=== PATIENT | female | born 1990 | race Caucasian/White ===

== ENCOUNTER 2018-10-28 07:12 | Outpatient (CLI) | payer OTHER ==
[2018-10-28 12:19] LABS: BASOPHILS % (AUTO) 0.4 %; EOSINOPHILS # (AUTO) 0.1 10^3/uL (0.0-0.7); EOSINOPHILS % (AUTO) 1.8 %; HGB - HEMOGLOBIN 13.4 g/dL (12.0-16.0); LYMPHOCYTES # (AUTO) 2.3 10^3/uL (1.5-3.5); MEAN CORPUSCULAR HEMOGLOBIN 29.2 pg (27.0-31.0); MEAN CORPUSCULAR HGB CONC 31.9 g/dL (32.0-36.0); MEAN CORPUSCULAR VOLUME 91.5 fL (81.0-99.0); MEAN PLATELET VOLUME 10.6 fL (7.9-10.8); MONOCYTES # (AUTO) 0.5 10^3/uL (0.0-1.0); MONOCYTES % (AUTO) 7.9 %; NEUTROPHILS # (AUTO) 3.7 10^3/uL (1.5-6.6); NEUTROPHILS % (AUTO) 55.8 %; PLT - PLATELET COUNT 231 10^3/uL (130-450); RED BLOOD COUNT 4.59 10^6/uL (4.20-5.40); RED CELL DISTRIBUTION WIDTH 12.7 % (12.0-15.0); WHITE BLOOD COUNT 6.7 x10^3/uL (4.8-10.8)
[2018-10-28 13:55] LABS: ALBUMIN 4.3 g/dL (3.2-5.5); ALBUMIN/GLOBULIN RATIO 1.5 (1.0-2.2); ALKALINE PHOSPHATASE 50 IU/L (42-121); ALT ALANINE AMINOTRANSFERASE 13 IU/L (10-60); AST ASPARTATE AMINOTRANSFERASE 15 IU/L (10-42); BILIRUBIN,TOTAL 0.8 mg/dL (0.2-1.0); BUN - BLOOD UREA NITROGEN 15 mg/dL (6-20); CARBON DIOXIDE - CO2 28 mmol/L (21-32); CHLORIDE 109 mmol/L (101-111); CHOL/HDL RATIO 4.2 (<4.4); CHOLESTEROL 229 mg/dL; CREATININE 0.7 mg/dL (0.4-1.0); GFR - MDRD 99 (>89); GLUCOSE 93 mg/dL (70-100); HDL CHOLESTEROL 55 mg/dL; LDL CHOLESTEROL,CALCULATED 159 mg/dL; LDL/HDL RATIO 2.9 (<4.4); SODIUM 139 mmol/L (135-145); TOTAL PROTEIN 7.2 g/dL (6.7-8.2); VLDL CHOLESTEROL 15 mg/dL
== END 2018-10-28 07:18 | disposition home or self-care (01) ==
LOC: LAB.N 07:12
PROVIDERS: ATTEND Nurse Practitioner Gerontology
DX: Z13.9 Encounter for screening, unspecified (principal)
CPT/HCPCS: 36415; 80053; 80061; 83721; 85025

== ENCOUNTER 2019-11-04 07:00 | Outpatient (CLI) | payer OTHER ==
[2019-11-04 17:09] LABS: MUDS CUTOFF CONCENTRATIONS CUTOFF CONC BELOW:
[2019-11-04 18:27] LABS: BILIRUBIN,URINE NEGATIVE (NEGATIVE); GLUCOSE, URINE (UA) NEGATIVE (NEGATIVE); KETONES,URINE (UA) NEGATIVE (NEGATIVE); LEUKOCYTE ESTERASE, URINE MODERATE (NEGATIVE); NITRITE,URINE NEGATIVE (NEGATIVE); OCCULT BLOOD,URINE NEGATIVE (NEGATIVE); PROTEIN,URINE NEGATIVE (NEGATIVE); UROBILINOGEN,URINE 0.2 (NORMAL) E.U./dL (NORMAL)
[2019-11-04 18:29] LABS: CLARITY,URINE CLEAR (CLEAR)
[2019-11-04 18:42] LABS: AMPHETAMINE SCREEN,URINE NEGATIVE (NEGATIVE); BENZODIAZEPINES SCREEN, URINE NEGATIVE (NEGATIVE); COCAINE SCREEN URINE NEGATIVE (NEGATIVE); METHADONE SCREEN, URINE NEGATIVE (NEGATIVE); METHAMPHETAMINES SCREEN, URINE NEGATIVE (NEGATIVE); OPIATE SCREEN, URINE NEGATIVE (NEGATIVE); OXYCODONE SCREEN, URINE NEGATIVE (NEGATIVE); PROPOXYPHENE SCREEN, URINE NEGATIVE (NEGATIVE); TRICYCLIC ANTIDEPRESSANT,URINE NEGATIVE (NEGATIVE)
[2019-11-04 18:43] LABS: BACTERIA,URINE Many /HPF (None Seen); RBC,URINE 0-5 /HPF (0-5); SQUAMOUS EPITHELIAL CELL,UR FEW Squamous (<= Few)
== END 2019-11-04 07:01 | disposition home or self-care (01) ==
LOC: LAB.R 07:00
PROVIDERS: ATTEND Obstetrics & Gynecology
DX: Z32.01 Encounter for pregnancy test, result positive (principal)
CPT/HCPCS: 80306; 81001; 87086

== ENCOUNTER 2019-11-16 15:27 | Outpatient (CLI) | payer OTHER ==
--- NOTE | 2019-11-17 10:04 | Ultrasound Report ---
PROCEDURE: OB First Trimester INDICATIONS: TEST POSITIVE OUTSIDE/PRIOR DATING DATA: Last menstrual period (LMP): 09/26/2019. LMP-based estimated date of delivery (RICH): 07/02/2020. First dating scan (date and location): This study, 11/16/2019. Estimated date of delivery (RICH) from first dating scan: 07/05/2020. TECHNIQUE: Real-time scanning was performed of the fetus and maternal pelvic organs, with image documentation. COMPARISON: None FINDINGS: Single living intrauterine gestation. Embryo: [place]-rump length is 8 mm which correlates with a gestational age of 6 weeks 6 days, +/- 5 d ays. Mean sac diameter is 2.2 cm, maternal cervical appearance is normal for early gestation. h eart rate is measured at 1 25 bpm. Incidental note is made of a subchorionic hemorrhage at the gestat ional sac margin measuring only 4 x 4 x 13 mm. Measurement variability in dating: +/- 4 weeks by LMP, +/- 7 days by mean sac diameter (use before 6 weeks gestation if crown-rump length not able to be measured), +/- 5 days by crown-rump length (6-12 weeks gestation). Maternal organs: Ovaries right-sided corpus luteum cyst.. Limited images through the kidneys demons trate no hydronephrosis. IMPRESSION: Single living intrauterine first trimester gestation with estimated current gestational age of only 6 weeks 6 days, and the delivery date is projected to be centered on 07/05/2020, +/- 5 days. Note is ma de of a small perigestational subchorionic hemorrhage measuring only 0.4 x 1.3 x 0.4 cm. Follow-up fe sony anatomic survey at 20 weeks gestation is recommended. Reviewed by: Weston Avilez MD on 11/17/2019 10:03 AM PDT Approved by: Weston Avilez MD on 11/17/2019 10:03 AM PDT Station ID: [id number]
--- NOTE | 2019-11-17 10:06 | Ultrasound Report ---
PROCEDURE: OB Transvaginal INDICATIONS: TEST POSITIVE IMPRESSION: Please refer to the dedicated OB ultrasound first trimester report which combines the transabdominal and transvaginal scanning performed today. Reviewed by: Weston Avilez MD on 11/17/2019 10:05 AM PDT Approved by: Weston Avilez MD on 11/17/2019 10:05 AM PDT Station ID: [id number]
== END 2019-11-16 15:28 | disposition home or self-care (01) ==
LOC: DI 15:27
PROVIDERS: ATTEND Obstetrics & Gynecology
DX: Z32.01 Encounter for pregnancy test, result positive (principal)
CPT/HCPCS: 76801; 76817

== ENCOUNTER 2019-11-24 08:30 | Outpatient (CLI) | payer OTHER ==
[2019-11-24 21:06] LABS: TRICHOMONAS VAGINALIS DNA NEGATIVE (NEGATIVE)
== END 2019-11-24 23:59 | disposition home or self-care (01) ==
LOC: LAB.R 08:30
PROVIDERS: ATTEND Advanced Practice Midwife
DX: Z34.90 Encounter for supervision of normal pregnancy, unspecified, unspecified trimester (principal); Z11.3 Encounter for screening for infections with a predominantly sexual mode of transmission
CPT/HCPCS: 87491; 87591; 87661

== ENCOUNTER 2019-11-24 08:50 | Outpatient (CLI) | payer OTHER ==
[2019-11-24 09:07] LABS: MUDS CUTOFF CONCENTRATIONS CUTOFF CONC BELOW:
[2019-11-24 09:23] LABS: BASOPHILS % (AUTO) 0.3 %; EOSINOPHILS # (AUTO) 0.1 10^3/uL (0.0-0.7); EOSINOPHILS % (AUTO) 0.7 %; HGB - HEMOGLOBIN 13.6 g/dL (12.0-16.0); LYMPHOCYTES # (AUTO) 1.6 10^3/uL (1.5-3.5); LYMPHOCYTES % (AUTO) 22.2 %; MEAN CORPUSCULAR HEMOGLOBIN 30.4 pg (27.0-31.0); MEAN CORPUSCULAR HGB CONC 34.5 g/dL (32.0-36.0); MEAN CORPUSCULAR VOLUME 87.9 fL (81.0-99.0); MEAN PLATELET VOLUME 9.8 fL (7.9-10.8); MONOCYTES # (AUTO) 0.5 10^3/uL (0.0-1.0); MONOCYTES % (AUTO) 6.6 %; NEUTROPHILS % (AUTO) 69.8 %; PLT - PLATELET COUNT 225 10^3/uL (130-450); RED BLOOD COUNT 4.48 10^6/uL (4.20-5.40); RED CELL DISTRIBUTION WIDTH 11.8 % (12.0-15.0); WHITE BLOOD COUNT 7.1 x10^3/uL (4.8-10.8)
[2019-11-24 09:47] LABS: AMPHETAMINE SCREEN,URINE NEGATIVE (NEGATIVE); BENZODIAZEPINES SCREEN, URINE NEGATIVE (NEGATIVE); COCAINE SCREEN URINE NEGATIVE (NEGATIVE); METHADONE SCREEN, URINE NEGATIVE (NEGATIVE); METHAMPHETAMINES SCREEN, URINE NEGATIVE (NEGATIVE); OPIATE SCREEN, URINE NEGATIVE (NEGATIVE); OXYCODONE SCREEN, URINE NEGATIVE (NEGATIVE); PROPOXYPHENE SCREEN, URINE NEGATIVE (NEGATIVE); TRICYCLIC ANTIDEPRESSANT,URINE NEGATIVE (NEGATIVE)
[2019-11-25 12:14] LABS: HEPATITIS B SURFACE ANTIGEN NON-REACTIVE (NON-REACTIVE)
[2019-11-25 12:42] LABS: HEPATITIS C ANTIBODY NON-REACTIVE (NON-REACTIVE)
[2019-11-25 13:25] LABS: HIV AG/AB 4TH GEN NON-REACTIVE (NON-REACTIVE)
== END 2019-11-24 08:51 | disposition home or self-care (01) ==
LOC: LAB 08:50
PROVIDERS: ATTEND Advanced Practice Midwife
DX: Z34.90 Encounter for supervision of normal pregnancy, unspecified, unspecified trimester (principal); Z36.89 Encounter for other specified antenatal screening
CPT/HCPCS: 36415; 80306; 81599; 85025; 86592; 86762; 86787; 86803; 86850; 86900; 86901; 87340; 87389; 87491; 87591; 87661

== ENCOUNTER 2019-12-21 08:00 | Outpatient (CLI) | payer OTHER ==
[2019-12-21 22:39] LABS: CANDIDA GROUP DNA NEGATIVE (NEGATIVE); CANDIDA KRUSEI DNA NEGATIVE (NEGATIVE); TRICHOMONAS VAGINALIS DNA NEGATIVE (NEGATIVE)
== END 2019-12-21 23:59 | disposition home or self-care (01) ==
LOC: LAB.R 08:00
PROVIDERS: ATTEND Nurse Practitioner Obstetrics & Gynecology
DX: N89.8 Other specified noninflammatory disorders of vagina (principal)
CPT/HCPCS: 87661; 87801

== ENCOUNTER 2020-02-14 09:47 | Outpatient (CLI) | payer OTHER ==
--- NOTE | 2020-02-14 13:31 | Ultrasound Report ---
PROCEDURE: OB Detailed Eval INDICATIONS: SCREENING OUTSIDE/PRIOR DATING DATA: Last menstrual period (LMP): 09/26/2019. LMP-based estimated date of delivery (RICH): 07/02/2020. First dating scan (date and location): 11/16/2019. Estimated date of delivery (RICH) from first dating scan: 07/05/2020. TECHNIQUE: Real-time scanning was performed of the fetus, with image documentation and biometric measurements. Endovaginal scanning: Not needed COMPARISON: 11/16/2019 FINDINGS: General: A single living intrauterine gestation is present. Presentation: Breech Placenta: Placental position is anterior, without previa. Amniotic fluid index: 14.5 cm, 53.4 percentile for gestational age. heart rate: 158 beats per minute. Maternal cervical canal: 4.4 cm long; normal length is 2.5 cm or more. biometrics: Biparietal diameter: 4.5 cm, 19 weeks 4 days Head circumference: 16.7 cm, 19 weeks 3 days Abdominal circumference: 14.1 cm, 19 weeks 3 days Femur length: 3.0 cm, 19 weeks 1 day Estimated gestational age from initial scan: 20 weeks 1 day. Composite gestational age from present scan: 19 weeks 3 days Estimated weight and percentile: 286 g, 24.3 percentile Measurement variability in biometric dating: +/- 10 days from 12-20 weeks gestation, +/- 2 weeks from 20-30 weeks gestation, +/- 3 weeks at 30 weeks gestation or later. Anatomic survey: Neuro: Ventricles are normal at less than 10 mm. Cisterna magna is normal at 3-11 mm. Cerebellum i s normal in size and morphology. Nuchal skin fold: Normal at less than 6 mm between 14 and 20 weeks gestational age. Face: Nose and lips, facial profile are normal. Spine: No evidence for spina bifida. Heart: 4-chambered heart is present, with normal ventricular outflow tracts. Diaphragm: Diaphragm is intact. Stomach: Left-sided stomach is present. Kidneys: No hydronephrosis. Normal is less than 5 mm in 2nd trimester, less than 7 mm in 3rd trimester. Cord: 3 vessel cord has orthotopic insertion. Bladder: Normal in size. Extremities: All 4 extremities are visualized. IMPRESSION: Appropriate interval growth, no anomaly seen. The delivery date is projected to be centered on 07/05/2020 +/- 5 days from first available OB ultrasound dated 11/16/2019. No anomaly is seen. Reviewed by: Weston Avilez MD on 02/14/2020 1:29 PM PST Approved by: Weston Avilez MD on 02/14/2020 1:29 PM PST Station ID: [id number]
== END 2020-02-14 09:48 | disposition home or self-care (01) ==
LOC: DI 09:47
PROVIDERS: ATTEND Nurse Practitioner Obstetrics & Gynecology
DX: Z36.89 Encounter for other specified antenatal screening (principal)

== ENCOUNTER 2020-03-30 08:00 | Outpatient (CLI) | payer OTHER ==
[2020-03-30 09:38] LABS: HGB - HEMOGLOBIN 12.1 g/dL (12.0-16.0); MEAN CORPUSCULAR HEMOGLOBIN 31.7 pg (27.0-31.0); MEAN CORPUSCULAR HGB CONC 34.6 g/dL (32.0-36.0); MEAN CORPUSCULAR VOLUME 91.6 fL (81.0-99.0); MEAN PLATELET VOLUME 9.7 fL (7.9-10.8); RED BLOOD COUNT 3.82 10^6/uL (4.20-5.40); RED CELL DISTRIBUTION WIDTH 12.3 % (12.0-15.0); WHITE BLOOD COUNT 7.9 x10^3/uL (4.8-10.8)
== END 2020-03-30 23:59 | disposition home or self-care (01) ==
LOC: LAB 08:00
PROVIDERS: ATTEND Nurse Practitioner Obstetrics & Gynecology
DX: Z36.89 Encounter for other specified antenatal screening (principal)
CPT/HCPCS: 36415; 82950; 85027

== ENCOUNTER 2020-05-11 08:00 | Outpatient (CLI) | payer OTHER ==
[2020-05-11 10:57] LABS: BASOPHILS % (AUTO) 0.3 %; EOSINOPHILS # (AUTO) 0.1 10^3/uL (0.0-0.7); EOSINOPHILS % (AUTO) 0.5 %; HCT - HEMATOCRIT 34.7 % (37.0-47.0); HGB - HEMOGLOBIN 11.9 g/dL (12.0-16.0); LYMPHOCYTES # (AUTO) 1.4 10^3/uL (1.5-3.5); LYMPHOCYTES % (AUTO) 15.2 %; MEAN CORPUSCULAR HGB CONC 34.3 g/dL (32.0-36.0); MEAN CORPUSCULAR VOLUME 90.4 fL (81.0-99.0); MEAN PLATELET VOLUME 9.6 fL (7.9-10.8); MONOCYTES # (AUTO) 0.7 10^3/uL (0.0-1.0); MONOCYTES % (AUTO) 7.2 %; NEUTROPHILS # (AUTO) 7.2 10^3/uL (1.5-6.6); PLT - PLATELET COUNT 197 10^3/uL (130-450); RED BLOOD COUNT 3.84 10^6/uL (4.20-5.40); RED CELL DISTRIBUTION WIDTH 12.4 % (12.0-15.0); WHITE BLOOD COUNT 9.5 x10^3/uL (4.8-10.8)
[2020-05-11 11:11] LABS: ALBUMIN 3.1 g/dL (3.2-5.5); ALBUMIN/GLOBULIN RATIO 0.9 (1.0-2.2); BILIRUBIN,TOTAL 0.4 mg/dL (0.2-1.0); CALCIUM 9.4 mg/dL (8.5-10.3); CREATININE 0.6 mg/dL (0.4-1.0); POTASSIUM 3.7 mmol/L (3.5-5.0); TOTAL PROTEIN 6.5 g/dL (6.7-8.2)
[2020-05-11 11:53] LABS: CREATININE,URINE 96.7 mg/dL; PROTEIN/CREATININE RATIO,URINE 0.1 (<=0.2)
== END 2020-05-11 23:59 | disposition home or self-care (01) ==
LOC: LAB 08:00
PROVIDERS: ATTEND Nurse Practitioner Obstetrics & Gynecology
DX: O13.3 Gestational [pregnancy-induced] hypertension without significant proteinuria, third trimester (principal)
CPT/HCPCS: 36415; 80053; 82570; 84156; 85025

== ENCOUNTER 2020-06-08 08:00 | Outpatient (CLI) | payer OTHER | END 2020-06-08 23:59 | disposition home or self-care (01) | LOC: LAB.WC 08:00 | PROVIDERS: ATTEND Nurse Practitioner Obstetrics & Gynecology | DX: Z36.85 Encounter for antenatal screening for Streptococcus B (principal) | CPT/HCPCS: 87797 ==

== ENCOUNTER 2020-06-08 09:39 | Outpatient (CLI) | payer OTHER ==
[2020-06-08 09:53] LABS: HCT - HEMATOCRIT 34.5 % (37.0-47.0); HGB - HEMOGLOBIN 11.8 g/dL (12.0-16.0); MEAN CORPUSCULAR HEMOGLOBIN 31.2 pg (27.0-31.0); MEAN CORPUSCULAR HGB CONC 34.2 g/dL (32.0-36.0); MEAN CORPUSCULAR VOLUME 91.3 fL (81.0-99.0); RED BLOOD COUNT 3.78 10^6/uL (4.20-5.40); RED CELL DISTRIBUTION WIDTH 12.3 % (12.0-15.0); WHITE BLOOD COUNT 9.4 x10^3/uL (4.8-10.8)
[2020-06-08 10:07] LABS: ALBUMIN/GLOBULIN RATIO 0.9 (1.0-2.2); BILIRUBIN,TOTAL 0.6 mg/dL (0.2-1.0); CALCIUM 9.2 mg/dL (8.5-10.3); CREATININE 0.6 mg/dL (0.4-1.0); POTASSIUM 3.4 mmol/L (3.5-5.0); TOTAL PROTEIN 6.2 g/dL (6.7-8.2)
[2020-06-08 10:08] LABS: CREATININE,URINE 28.6 mg/dL
[2020-06-08 10:09] LABS: TOTAL PROTEIN,URINE TIMED < 6 mg/dL
== END 2020-06-08 09:40 | disposition home or self-care (01) ==
LOC: LAB 09:39
PROVIDERS: ATTEND Nurse Practitioner Obstetrics & Gynecology
DX: O99.891 Other specified diseases and conditions complicating pregnancy (principal); R03.0 Elevated blood-pressure reading, without diagnosis of hypertension
CPT/HCPCS: 36415; 80053; 82570; 84156; 85027

== ENCOUNTER 2020-07-04 20:02 | Inpatient (IN) | payer OTHER ==
[2020-07-04] MEDS ORDERED: OXYTOCIN 10 UNIT/ML VIAL IM PRN (20:28)
[2020-07-04] MEDS ORDERED: LIDOCAINE-MPF 1% 30 ML VIAL ID PRN (20:28)
[2020-07-04] MEDS ORDERED: SODIUM CHLORIDE FLUSH 0.9% 10 ML SYRINGE IVP PRN (20:28)
[2020-07-04] MEDS ORDERED: ONDANSETRON 4 MG/2 ML VIAL IVP PRN (20:28)
[2020-07-04] MEDS ORDERED: CARBOPROST TROMETHAMINE 250 MCG/ML AMP IM PRN (20:28)
[2020-07-04] MEDS ORDERED: TRANEXAMIC ACID IN NACL 1,000 MG/100 ML BAG IV PRN (20:28)
[2020-07-04] MEDS ORDERED: METHYLERGONOVINE 0.2 MG/ML VIAL IM PRN (20:28)
[2020-07-04] MEDS ORDERED: OXYTOCIN/SODIUM CHLORIDE 500 ML IV PRN (20:28)
[2020-07-04] MEDS ORDERED: miSOPROStoL 200 MCG TABLET BC PRN (20:28)
--- NOTE | 2020-07-04 20:38 | HISTORY & PHYSICAL EXAMINATION ---
Admit History - Visit Reason Visit Reason: Contractions - : 4 Parity: 2 Premature: 0 Ectopic: 0 : 1 Care: positive: [facility] Risk/History: positive: None Complications This : positive: None - Mother's Labs Mother's Blood Type: positive: O Mother's RH: positive: Positive GBS: positive: Group B Step Negative Rubella Status: positive: Immune Review of Systems - Constitutional Constitutional: denies: Fatigue, Fever, Chills, Malaise - Eyes Eyes: denies: Blurred vision, Spots in vision, Dipolpia - Cardiovascular Cariovascular: denies: Irregular heart rate, Chest pain, Edema - Respiratory Respiratory: denies: Cough, SOB at rest - Gastrointestinal Gastrointestinal: denies: Constipation, Diarrhea, Change in bowel habits - Integumentary Integumentary: denies: Rash, Pruritis - Neurological Neurological: denies: Headache Physical - Abdominal Exam Contraction Frequency (min/apart): 2-3 Contraction Intensity: positive: Moderate Uterine Resting Tone: positive: Soft - Monitoring Heart Rate Baseline: 145 Strip Review: positive: Category I - Presentation Presentation: positive: Vertex - Vaginal Exam Membranes: positive: Membranes intact Dilation (in cm): 3 Effacement (%): 75 Station: positive: -2 Cervical Position: positive: Posterior - Speculum Exam Speculum Exam Performed: positive: No Plan for Labor - Plan For Labor I expect patient to be DC'd or transferred within 96 hours.: Yes Plan for Labor: HPI: This 30yo @ 40.2wks gestation by LMP c/w 7.2wk U/S presents to [facility] with c/o contractions that are 2-3 minutes apart. She denies vaginal bleeding or leakage of fluid. She reports +FM. Upon arrival she is noted to contract every 2-3 minutes and her cervix is noted to be 3/75/-3 and vertex. She is breathing through contractions and is supported by her Anders. She intends an unmedicated delivery. She has been a patient of [facility] through the duration of her which has remained uncomplicated. She has a hx of gestational hypertension with her previous pregnancies however she was started on 81mg ASA daily at 12 weeks gestation and her blood pressure has remained within normal limits through the duration of her . She will be admitted to [facility] for expectant management. Dating criteria: LMP Initial U/S @ 7.2wks c/w LMP dating Serial exams - agree OB Hx: G1: 05/10/2014 SAB @ 6wks G2: 02/27/2015 @ 38wks; female; 6lb6oz; complications: gestational HTN, IOL G3: 11/27/2016 @ 39wks; male; 7lb2oz; gestational HTN, IOL G4: Current Medications: PNV, 81mg ASA daily; sertraline 50mg Allergies: NKDA PMHx: Anxiety/depression; seasonal allergies Surgical Hx: none Social Hx: Never smoker. No ETOH or IVDA. Anders Family Hx: Heart disease - mother, MGF; HTN - mother; High cholesterol - father PROBLEMS: Hx gestational HTN x2- 81mg ASA daily Initial U/S: at 7.2wks c/w LMP for RICH of 07/02/2020 O pos/Rubella immune VZV immune Gentic testing: declines FAS: FAS WNL. Anterior placenta, no previa. 3VC. Size c/w dating efw 24.3% Glucola 91 Flu: 11/04/2019 TDAP 04/13/2020 GBS at 36.4 wks - Negative HSV: denies self and partner Breast pump Rx provided MOD: . : Anders, daughter-5, son Reed-3; It's a GIRL!; Moving to [place] 1 week after RICH (07/14/2020) plan - does NOT want pitocin for IOL and states membrane sweep and misoprostol as worked fine for her to initiate labor. She is okay with IV access. Wants to avoid PP pitocin if possible. Reviewed recommendations for active management of the third stage. Accepting with increased rate of bleeding. Okay with gentle cord traction and fundal massage. pp contraception: NO iud or devices. Low dose OCPs. PAP: 10/24/2019-wnl Physical Exam: Normocephalic, atraumatic Heart RRR w/o M/G/R Lungs CTAB Abdomen gravid, soft, nontender EFW 3800g FHR baseline 145, moderate variability, + accels, no decels Contractions palpate moderate every 2-3 minutes with soft resting tone SVE 3/75/-3. Vertex. Membranes intact. Bilateral LE's trace edema Assessment: 30yo @ 40.2wks gestation by LMP c/w 7.2wk U/S Early labor GBS neg FHR Category I Plan: Admit to [facility] for expectant management. Intermittent heart rate auscultation. Encouraged ambulation and position changes. Jacuzzi PRN. Nitrous oxide PRN. Anticipate . Pt verbalized understanding and agrees to above plan. She denies further questions or concerns at this time.
[2020-07-04] MEDS ORDERED: LACTATED RINGERS 1,000 ML IV SCH (21:00)
[2020-07-04 21:21] LABS: BASOPHILS % (AUTO) 0.3 %; EOSINOPHILS # (AUTO) 0.1 10^3/uL (0.0-0.7); EOSINOPHILS % (AUTO) 0.9 %; HCT - HEMATOCRIT 35.1 % (37.0-47.0); HGB - HEMOGLOBIN 12.3 g/dL (12.0-16.0); LYMPHOCYTES % (AUTO) 19.1 %; MEAN CORPUSCULAR HEMOGLOBIN 31.3 pg (27.0-31.0); MEAN CORPUSCULAR VOLUME 89.3 fL (81.0-99.0); MEAN PLATELET VOLUME 10.2 fL (7.9-10.8); NEUTROPHILS # (AUTO) 7.4 10^3/uL (1.5-6.6); NEUTROPHILS % (AUTO) 70.1 %; PLT - PLATELET COUNT 212 10^3/uL (130-450); RED BLOOD COUNT 3.93 10^6/uL (4.20-5.40); WHITE BLOOD COUNT 10.6 x10^3/uL (4.8-10.8)
[2020-07-05] MEDS ORDERED: SODIUM CHLORIDE FLUSH 0.9% 10 ML SYRINGE IVP SCH (01:00)
[2020-07-05] MEDS ORDERED: HYDROCORTISONE 1% CREAM 28 GM TUBE PR PRN (01:21)
[2020-07-05] MEDS ORDERED: WITCH HAZEL/GLYCERIN 1 PAD TOP PRN (01:21)
--- NOTE | 2020-07-05 01:26 | DELIVERY NOTE ---
Delivery Note - Labor Labor: positive: Spontaneous - Delivery Method Delivery Method: positive: Spontaneous vaginal delivery - Presentation Presentation: positive: Vertex, OA - occiput anterior - Nuchal Cord Nuchal Cord: positive: None - Amniotic Fluid Description Amniotic Fluid Description: positive: Clear - Episiotomy Type Episiotomy Type: positive: None - Laceration Laceration: positive: 1st degree, Vaginal - Suture Suture Type: positive: Vicryl Suture Size: positive: 2-0 - Delivery Outcome Delivery Outcome: positive: Livebirth - [place]: positive: Placed in direct skin contact with mother, Stimulated, Warmed, [place] used [place] sex: positive: Female - Cord Cord: positive: 3 vessels - Placenta Placenta: positive: Intact, Spontaneous - Estimated Blood Loss Estimated Blood Loss (in cc): 200 - Post Delivery Events Post Delivery Events: positive: No post delivery events - Delivery Comments (Free Text/Narrative) Delivery Comments (Free Text/Narrative): Labor: This 30yo @ 40.3wks gestation who presented in early labor. Cervix was 3/75/-3, midposition and vertex. FHR Category I pattern. Intermitent monitoring reviewed reassuring heart tones throughout labor. Normal labor course. SROM occurred when patient reached complete dilation with onset of pushing at 0027. : Normal of viable female infant on 07/05/2020 @ 0037. No nuchal cord. The was placed on maternal abdomen, stimulated, dried, and placed skin to skin. 's were 8/9 at 1 and 5 min respectively. The umbilical cord was allowed to stop pulsating at which time it was doubly clamped by CNM and cut by FOB> 3VC. Cord blood was obtained. Fundal massage and gentle cord traction applied for modified active management of the third stage as pt declined use of pitocin if bleeding was well controlled which it was. Placenta delivered spontaneously and intact at 0045. EBL 200mL. Fourth stage: Uterine fundus firm and there is no excessive bleeding. The perineum, vagina, and cervix were inspected and noted to have 1st degree vaginal laceration which was repaired using a 2-[address]-1 needle in standard fashion and under sterile conditions. Vaginal examination following repair was completed. Tissues well approximated. initiated. Family bonding well. Both mother and baby were left in stable condition.
[2020-07-05] MEDS: ACETAMINOPHEN 500 MG TABLET PO SCH ×3 (01:49→17:32)
[2020-07-05] MEDS: IBUPROFEN 800 MG TABLET PO SCH ×4 (01:49→20:11)
[2020-07-05] MEDS: DOCUSATE SODIUM 100 MG CAPSULE PO SCH ×2 (08:11→20:11)
--- NOTE | 2020-07-05 09:24 | PROVIDER PROGRESS NOTE ---
Subjective - Subjective Subjective: S: Bonding well with baby. without difficulty. Pain well controlled with oral medications. Bleeding decreased and is light. She is ambulating and tolerating a regular diet. Her mood is good. Her is supportive at the bedside. O: BP 127/85, T 36.9, RR 16, HR 94 Heart RRR w/o M/G/R, lungs CTAB, abdomen soft and nontender, perineum intact, light lochia rubra, bilateral LE's trace edema A: 30yo -->P3 day of delivery s/p TSVD viable male 1st degree perineal laceration - intact P: Continue routine pp care and medications. Evaluate for discharge home tomorrow. Pt verbalized understanding and agrees to above plan. She denies further questions or concerns at this time. Objective - Vital Signs/Intake & Output Vital Signs: Vital Signs x48h Temp Pulse Resp BP Pulse Ox 07/05/20 08:00 36.9 C 94 16 127/85 H 96 07/05/20 06:12 98 07/05/20 06:00 16 121/76 07/05/20 03:30 36.9 C 109 H 16 07/05/20 03:00 100 114/72 - Lab Results Fish Bones: 07/04/20 21:00 Other Labs: Lab Results x24hrs 07/04/20 Range/Units 21:00 WBC 10.6 (4.8-10.8) x10^3/uL RBC 3.93 L (4.20-5.40) 10^6/uL Hgb 12.3 (12.0-16.0) g/dL Hct 35.1 L (37.0-47.0) % MCV 89.3 (81.0-99.0) fL MCH 31.3 H (27.0-31.0) pg MCHC 35.0 (32.0-36.0) g/dL RDW 12.0 (12.0-15.0) % Plt Count 212 (130-450) 10^3/uL MPV 10.2 (7.9-10.8) fL Neut # (Auto) 7.4 H (1.5-6.6) 10^3/uL Lymph # (Auto) 2.0 (1.5-3.5) 10^3/uL [place] # (Auto) 1.0 (0.0-1.0) 10^3/uL Eos # (Auto) 0.1 (0.0-0.7) 10^3/uL Baso # (Auto) 0.0 (0.0-0.1) 10^3/uL Absolute Nucleated RBC 0.00 x10^3/uL Nucleated RBC % 0.0 /100WBC
[2020-07-06] MEDS: ACETAMINOPHEN 500 MG TABLET PO SCH (01:37)
[2020-07-06] MEDS: IBUPROFEN 800 MG TABLET PO SCH ×2 (02:15→08:47)
[2020-07-06] MEDS: DOCUSATE SODIUM 100 MG CAPSULE PO SCH (08:47)
[2020-07-06 09:30] VITALS: BP 134/89
--- NOTE | 2020-07-06 09:49 | PROVIDER PROGRESS NOTE ---
Subjective - Subjective Subjective: S: Bonding well with baby. without difficulty. Bleeding decreased and is light. Pain well controlled with oral medications. She reports increased swelling to LE's bilaterally. Concerned with her slightly elevated BP and her hx of gestational HTN. She denies headache and reports once yesterday she experienced spots in her visual field. She is unable to remember what she was doing at that time and states it may have been associated with going from sitting to standing position. She desires to be discharged home today. Her is supportive at the bedside. O: BP 134/89, T 36.9, RR 16, HR 69 CBC and CMP pending Heart RRR w/o M/G/R, lungs CTAB, abdomen soft and nontender with fundus firm at U-2, perineum intact, repair without edema, light lochia rubra, bilateral LE's mild edema. A: 30yo -->P3 PPD#1 s/p TSVD viable female infant Normal recovery P: Reviewed pp self care and warning s/sx and when to present. Pt has emergency contact information. Encouraged continuation of ibuprofen and tylenol OTC as needed for pain management. Encouraged continuation of PNV while breastfeeeding. Has struggled with pp depression and anxiety in the past and suffers from baseline anxiety for which she was prescribed medication but has not taken. Discussed initiating sertraline 50mg PO daily if needed. F/u in 1 week with myself at [facility] or sooner PRN. Pt verbalized understanding and agrees to above plan. She denies further que stions or concerns at this time. Objective - Vital Signs/Intake & Output Vital Signs: Vital Signs x48h Temp Pulse Resp BP Pulse Ox 07/06/20 08:13 36.9 C 69 16 134/89 H 100 07/06/20 02:00 36.6 C 71 14 135/91 H 98 - Lab Results Fish Bones: 07/04/20 21:00
--- NOTE | 2020-07-06 09:57 | Discharge Plan ---
Discharge Plan Problem Reviewed?: Yes Disposition: Home, Self Care Condition: Good Diet: Regular Activity Restrictions: No Restrictions Shower Restrictions: No Driving Restrictions: No Weight Bearing: Full Weight No Smoking: If you smoke, Please STOP! Call for help. Follow-up with: Paula Reyes CNM, ARNP [Provider Admit Priv/Credential] -
--- NOTE | 2020-07-06 10:03 | DISCHARGE SUMMARY ---
Discharge Summary Condition at Discharge: Good Discharge Disposition: 01 Home, Self Care - HOSPITAL COURSE Hospital Course: Date of Admission: 07/04/2020 Date of Discharge: 07/06/2020 Diagnosis on Admission: 1. 30yo @ 40.2wks gestation 2. Early labor 3. GBS negative Diagnosis on Discharge: 1. 30yo PPD#1 s/p TSVD viable female infant 2. 3. Normal recovery Brief History: She is a patient of [facility] who presented on 07/04/2020 with complaints of contractions. Upon arrival she was noted to contract every 2-3 minutes and her cervix was 3/75/-3 and vertex. She spontaneously progressed to deliver a viable female on 07/05/2020 @ 0037. Apgars were 8/9 at 1 and 5 minutes respectively. She was noted to have a 1st degree perineal laceration which was repaired in standard fashion and under sterile conditions. EBL 200mL. She has been doing well in her course. She is ambulating and tolerating a regular diet. She is urinating without difficulty and her lochia is normal. Her pain is well controlled with oral medications. She will be discharged home today on day #1 with instructions to continue taking her vitamin while , and to continue taking ibuprofen and tylenol over the counter as needed for pain management. In addition, we reviewed parameter for beginning her 50mg sertraline daily which she may decide to do and we will review again at her visit. She intends to follow up with myself at [facility] in 1 week for routine visit or s ooner if needed. She has been given precautions to call if she has any worsening fevers, chills, abdominal pain, increased bleeding, or foul smelling vaginal lochia. - ALLERGIES Allergies/Adverse Reactions: Allergies Allergy/AdvReac Type Severity Reaction Status Date / Time No Known Drug Allergies Allergy Verified 07/05/20 01:41 - LABS Result Diagrams: 07/04/20 21:00
[2020-07-06 10:12] LABS: HCT - HEMATOCRIT 34.5 % (37.0-47.0); HGB - HEMOGLOBIN 11.6 g/dL (12.0-16.0); MEAN CORPUSCULAR HEMOGLOBIN 31.1 pg (27.0-31.0); MEAN CORPUSCULAR HGB CONC 33.6 g/dL (32.0-36.0); MEAN CORPUSCULAR VOLUME 92.5 fL (81.0-99.0); MEAN PLATELET VOLUME 10.2 fL (7.9-10.8); RED BLOOD COUNT 3.73 10^6/uL (4.20-5.40); RED CELL DISTRIBUTION WIDTH 12.5 % (12.0-15.0); WHITE BLOOD COUNT 11.3 x10^3/uL (4.8-10.8)
[2020-07-06 10:22] LABS: ALBUMIN 2.8 g/dL (3.2-5.5); ALBUMIN/GLOBULIN RATIO 0.8 (1.0-2.2); BILIRUBIN,TOTAL 0.4 mg/dL (0.2-1.0); CALCIUM 8.5 mg/dL (8.5-10.3); CREATININE 0.7 mg/dL (0.4-1.0); POTASSIUM 4.1 mmol/L (3.5-5.0); TOTAL PROTEIN 6.1 g/dL (6.7-8.2)
--- NOTE | 2020-07-06 13:15 | Labor Flowsheet ---
Labor Flowsheet Datetime Report Generated by CPN: 07/06/2020 13:14 Datetime: 07/05/2020 01:45 VITAL SIGNS NBP Sys/Marivel/Mean (mmHg): 102 : 76 : 83 Pulse: 98 Datetime: 07/05/2020 00:45 Patient Care Comments: spontaneous delivery of placenta Datetime: 07/05/2020 00:39 Stage of : Datetime: 07/05/2020 00:35 Pain Assessment Comments: unable to get FHT due to mother extreme positioning and inability to move . COMMUNICATION LaborFlag: Labor Datetime: 07/05/2020 00:27 VAGINAL EXAM Dilatation (cm): 10.0 Membrane Status: Ruptured Membranes Ruptured Date/Time: 07/05/2020 00:27 Membranes Rupture Method: Spontaneous Amniotic Fluid Color: Clear Amniotic Fluid Amount: Scant Amniotic Fluid Odor: None Vaginal Bleeding: Normal Show Datetime: 07/05/2020 00:12 Effacement (%): 80 Station: -2 Exam by: Yimi, RNC Datetime: 07/05/2020 00:10 UTERINE ACTIVITY Monitor Mode: External Frequency (min): 2-3 Quality: Strong Duration (sec): poor trace. Estimated duration 69-90 Pattern: Normal: <= 5 Contractions in 10 Minutes Resting Tone (Palpate): Relaxed ASSESSMENT A Monitor Mode: Telemetry FHR Baseline Rate : 150 Variability: Moderate 6-25 bpm Accelerations: 15X15 Decelerations: None Category: Category I Comments: EFM off. Return to intermittent monitoring (doppler heart tones). Datetime: 07/04/2020 23:54 I/O Interventions: Up to BR Datetime: 07/04/2020 23:40 PAIN Pain Location: Back Pain Coping: Breathing Through Contractions; Declines Medication or Epidural Patient Position/Activity: Birthing Ball Comfort Measures: Back Rub Given; Family Support Datetime: 07/04/2020 23:29 Vaginal Exam Comments: patient denies any further bleeding. Datetime: 07/04/2020 21:00 PATIENT CARE IV/Blood Work: IV Started; Labs Drawn with IV Start; IV Saline Locked
== END 2020-07-06 12:45 | disposition home or self-care (01) | DRG 807 ==
LOC: WFO 20:02 → FBP 20:04 → WFO 20:28 → FBP 20:28 → OBS 07-05 03:31
PROVIDERS: ADMIT Nurse Practitioner Obstetrics & Gynecology; ATTEND Nurse Practitioner Obstetrics & Gynecology
PROC: 0HQ9XZZ Repair Perineum Skin, External Approach (ICD-10-PCS; principal; 2020-07-05)
PROC: 10E0XZZ Delivery of Products of Conception, External Approach (ICD-10-PCS; 2020-07-05)
DX: O48.0 Post-term pregnancy (principal); Z37.0 Single live birth; O70.0 First degree perineal laceration during delivery; O99.344 Other mental disorders complicating childbirth; F41.9 Anxiety disorder, unspecified; O13.5 Gestational [pregnancy-induced] hypertension without significant proteinuria, complicating the puerperium; Z3A.40 40 weeks gestation of pregnancy
CPT/HCPCS: 36415; 80053; 85025; 85027; A9270

== ENCOUNTER 2020-07-07 11:31 | Outpatient (CLI) | payer OTHER ==
[2020-07-07 13:54] VITALS: BP 128/80
--- NOTE | 2020-07-07 13:56 | Labor Flowsheet ---
Labor Flowsheet Datetime Report Generated by CPN: 07/07/2020 13:56 Datetime: 07/05/2020 01:45 VITAL SIGNS NBP Sys/Marivel/Mean (mmHg): 102 : 76 : 83 Pulse: 98 Datetime: 07/05/2020 00:45 Patient Care Comments: spontaneous delivery of placenta Datetime: 07/05/2020 00:39 Stage of : Datetime: 07/05/2020 00:35 Pain Assessment Comments: unable to get FHT due to mother extreme positioning and inability to move . COMMUNICATION LaborFlag: Labor Datetime: 07/05/2020 00:27 VAGINAL EXAM Dilatation (cm): 10.0 Membrane Status: Ruptured Membranes Ruptured Date/Time: 07/05/2020 00:27 Membranes Rupture Method: Spontaneous Amniotic Fluid Color: Clear Amniotic Fluid Amount: Scant Amniotic Fluid Odor: None Vaginal Bleeding: Normal Show Datetime: 07/05/2020 00:12 Effacement (%): 80 Station: -2 Exam by: Yimi, RNC Datetime: 07/05/2020 00:10 UTERINE ACTIVITY Monitor Mode: External Frequency (min): 2-3 Quality: Strong Duration (sec): poor trace. Estimated duration 69-90 Pattern: Normal: <= 5 Contractions in 10 Minutes Resting Tone (Palpate): Relaxed ASSESSMENT A Monitor Mode: Telemetry FHR Baseline Rate : 150 Variability: Moderate 6-25 bpm Accelerations: 15X15 Decelerations: None Category: Category I Comments: EFM off. Return to intermittent monitoring (doppler heart tones). Datetime: 07/04/2020 23:54 I/O Interventions: Up to BR Datetime: 07/04/2020 23:40 PAIN Pain Location: Back Pain Coping: Breathing Through Contractions; Declines Medication or Epidural Patient Position/Activity: Birthing Ball Comfort Measures: Back Rub Given; Family Support Datetime: 07/04/2020 23:29 Vaginal Exam Comments: patient denies any further bleeding. Datetime: 07/04/2020 21:00 PATIENT CARE IV/Blood Work: IV Started; Labs Drawn with IV Start; IV Saline Locked
== END 2020-07-07 11:50 | disposition home or self-care (01) ==
LOC: WFO 11:31 → OBS 11:32 → WFO 11:50
PROVIDERS: ATTEND Nurse Practitioner Obstetrics & Gynecology
DX: Z01.30 Encounter for examination of blood pressure without abnormal findings (principal)